=== PATIENT | male | born 1970 | race Caucasian/White ===

== ENCOUNTER 2017-08-05 17:51 | Inpatient (IN) | payer BC, SELFPAY ==
[2017-08-05] MEDS ORDERED: ASPIRIN 81 MG CHEWABLE TABLET ONE (18:29)
[2017-08-05] MEDS ORDERED: NITROGLYCERIN 0.4 MG/TAB SL ONE (18:29)
[2017-08-05] MEDS ORDERED: ONDANSETRON 4 MG/2 ML VIAL ONE (18:29)
[2017-08-05] MEDS ORDERED: NA CHLORIDE 0.9% 1,000 ML ONE (18:29)
[2017-08-05 18:48] LABS: Absolute Lymphocytes (CBC) 1.4 K/uL (0.7-4.9); Absolute Monocytes 0.5 K/uL (0.1-1.3); Absolute Neutrophil 5.2 K/uL (1.8-8.0); Basophils % 0.4 % (0-1.3); Eosinophils % 2.7 % (0-4.4); Hematocrit 49.2 % (39.6-49.0); Lymphocytes % 19.2 % (15.3-44.8); MCH 29.9 pg (27.0-35.0); MCV 88.6 fL (80-100); MPV 8.5 fL (7.6-11.3); Monocytes % 7.2 % (3.3-12.3); RBC Red Blood Cell Count 5.55 M/uL (4.33-5.43)
[2017-08-05 18:56] LABS: Protime INR 0.94
[2017-08-05 18:59] LABS: Bicarbonate 26 mEq/L (21-31); Glucose Level 149 mg/dL (65-120); Potassium 3.7 mEq/L (3.6-5.0); Sodium Level 137 mEq/L (135-145)
[2017-08-05 19:05] LABS: ALT/SGPT 29 IU/L (10-60); AST/SGOT 31 IU/L (10-42); Albumin 4.1 g/dL (3.2-5.5); Alkaline Phosphatase 60 IU/L (42-121); BUN Blood Urea Nitrogen 12 mg/dL (6-20); Bilirubin Direct < 0.1 mg/dL (0-0.2); Bilirubin Total 0.6 mg/dL (0.3-1.2); Creatine Phosphokinase 84 IU/L (22-269); Glomerular Filtration Rate 63 mL/min (=/>90); Magnesium 2.2 mg/dL (1.8-2.5); Protein, Total 7.4 g/dL (6.0-8.3)
[2017-08-05 19:08] LABS: CKMB Creatine Kinase MB 2.1 ng/ml (0.3-4.0)
[2017-08-05] MEDS ORDERED: MORPHINE 4 MG/ML SYR ONE (19:13)
--- NOTE | 2017-08-05 19:38 | RAD REPORT ---
EXAM DESCRIPTION: CT - Chest Angio - 08/05/2017 7:28 pm CLINICAL HISTORY: Chest pain, possible dissection COMPARISON: PE study 2010, chest film August 05, 2017 TECHNIQUE: Dynamically enhanced 3 mm thick images of the chest, abdomen, and upper pelvis were obtai ben during administration of approximately 150mL Isovue 370 IV contrast. Sagittal and coronal reconst ruction images were generated and reviewed. Exam utilizes a protocol to evaluate entire course of the aorta. All CT scans are performed using dose optimization technique as appropriate and may include automated exposure control or mA/KV adjustment according to patient size. FINDINGS: Aorta is normal in diameter with no dissection or other acute aortic findings. Reconstruct ion images show no significant findings. Pulmonary arteries are normal as well. No cardiomegaly, pericardial thickening or pericardial effusio n. No mass or infiltrate in the lung parenchyma. No pleural thickening, pleural effusion or pneumothorax . No abnormal mediastinal or hilar mass or lymphadenopathy seen. No chest wall mass or abnormal axillar y lymphadenopathy. Limited upper abdomen imaging shows multi stone cholelithiasis. Gallbladder is contracted. Acute gall bladder process is unlikely. No biliary tree dilatation. Partially imaged liver shows questionable fa tty infiltration. No focal lesions seen. IMPRESSION: Negative CT scan of the thoracic aorta. No suspicious or significant mediastinal, hilar or lung parenchymal process. No other significant findings on chest, abdomen and upper pelvis examination.
--- NOTE | 2017-08-05 20:15 | RAD REPORT ---
EXAM DESCRIPTION: RAD - Chest Single View - 08/05/2017 7:10 pm CLINICAL HISTORY: Chest pain, history of midline COMPARISON: February 2014 TECHNIQUE: AP portable chest image was obtained 1907 hours . FINDINGS: No peripheral mass or consolidation. Failure or volume overload not suspected tear heart s ize is prominent without vascular engorgement. This is a stable presentation. No measurable pleural e ffusion and no pneumothorax. No gross bony abnormality seen. No acute aortic findings suspected. IMPRESSION: No acute cardiopulmonary process. Cardiomegaly is present, similar to prior imaging, without acute failure or volume overload.
[2017-08-05] MEDS ORDERED: CLOPIDOGREL 75 MG TABLET ONE (20:19)
[2017-08-05] MEDS ORDERED: METOPROLOL TAR 25 MG TAB ONE (20:19)
--- NOTE | 2017-08-05 20:20 | EDPHYS ---
Physician Documentation [facility] Name: Luc Camacho Age: 47 yrs Sex: Male : 1970 Arrival Date: 08/05/2017 Time: 17:53 Bed 7 Private MD: ED Physician Ab Nichols HPI: 08/05 18:15 This 47 yrs old Male presents to ER via Ambulatory with complaints of Chest cp Pain. 18:15 The patient or guardian reports chest pain that is located primarily in the anterior cp chest wall. 18:15 Onset: 20 minute(s) ago. The pain radiates to back. Associated signs and symptoms: cp Pertinent positives: nausea, vomiting, Pertinent negatives: abdominal pain, cough, diaphoresis, headache, recent travel, syncope. The chest pain is described as sharp. Duration: The patient or guardian reports a single episode, that is still ongoing, and unchanged. Historical: - Allergies: 18:05 No Known Allergies; hj - PMHx: 18:05 Myocardial infarction; hj - PSHx: 18:05 heart stents; Appendectomy; hj - Immunization history:: Adult Immunizations up to date. - Social history:: Smoking status: Patient/guardian denies using tobacco. ROS: 18:20 Constitutional: Negative for body aches, chills, fever, poor PO intake. cp 18:20 Eyes: Negative for injury, pain, redness, and discharge, ENT: Negative for injury, cp pain, and discharge, Neck: Negative for injury, pain, and swelling. 18:20 Cardiovascular: Positive for chest pain, Negative for edema, palpitations. 18:20 Respiratory: Negative for cough, shortness of breath, wheezing. 18:20 Abdomen/GI: Positive for nausea, vomiting, Negative for abdominal pain, diarrhea, constipation, black/tarry stool, rectal bleeding. 18:20 Back: Positive for radiated pain, Negative for injury or acute deformity, decreased range of motion. 18:20 : Negative for urinary symptoms. 18:20 MS/extremity: Negative for paresthesias, swelling. 18:20 Skin: Negative for cellulitis, rash. 18:20 Neuro: Negative for altered mental status, headache, syncope, near syncope, weakness. 18:20 All other systems are negative. Exam: 18:25 Constitutional: The patient appears in no acute distress, alert, awake, cp non-diaphoretic, non-toxic, well developed, well nourished, uncomfortable. 18:25 Head/Face: Normocephalic, atraumatic. Eyes: Pupils equal round and reactive to light, cp extra-ocular motions intact. Lids and lashes normal. Conjunctiva and sclera are non-icteric and not injected. Cornea within normal limits. Periorbital areas with no swelling, redness, or edema. ENT: Nares patent. No nasal discharge, no septal abnormalities noted. Tympanic membranes are normal and external auditory canals are clear. Oropharynx with no redness, swelling, or masses, exudates, or evidence of obstruction, uvula midline. Mucous membranes moist. Neck: Trachea midline, no thyromegaly or masses palpated, and no cervical lymphadenopathy. Supple, full range of motion without nuchal rigidity, or vertebral point tenderness. No Meningismus. Chest/axilla: Normal chest wall appearance and motion. Nontender with no deformity. No lesions are appreciated. 18:25 Cardiovascular: Rate: tachycardic, Rhythm: regular, Pulses: Pulses are 2+ in right radial artery and left radial artery. Edema: is not appreciated, JVD: is not appreciated. 18:25 Respiratory: the patient does not display signs of respiratory distress, Respirations: normal, no use of accessory muscles, no retractions, no splinting, no tachypnea, labored breathing, is not present, Breath sounds: are clear throughout, no decreased breath sounds, no stridor, no wheezing. 18:25 Abdomen/GI: Inspection: abdomen appears normal, Bowel sounds: active, all quadrants, Palpation: abdomen is soft and non-tender, in all quadrants, rebound tenderness, is not appreciated, voluntary guarding, is not appreciated, involuntary guarding, is not appreciated. 18:25 Back: ROM is normal. 18:25 Musculoskeletal/extremity: Exam is negative for calf tenderness, edema, injury, Sensation intact. 18:25 Skin: cellulitis, is not appreciated, no rash present. 18:25 Neuro: Orientation: to person, place \T\ time. Mentation: is normal, Cerebellar function: is grossly normal, Motor: moves all fours, strength is normal, Sensation: is normal. Vital Signs: 18:03 BP 157 / 112; Pulse 110; Resp 18; Temp 97.1(O); Pulse Ox 96% on R/A; Weight 111.13 kg; hj Height 5 ft. 8 in. (172.72 cm); Pain 7/10; 18:35 BP 138 / 95; Pulse 114; Resp 22; Pulse Ox 95% on R/A; aj 19:11 BP 133 / 79; Pulse 80; Resp 18; Temp 98.; Pulse Ox 96% on R/A; Pain 4/10; ak1 20:44 BP 145 / 72; Pulse 70; Resp 18; Pulse Ox 99% on R/A; ea 21:03 BP 131 / 81; Pulse 78; Resp 18; Pulse Ox 99% on R/A; Pain 0/10; ea 22:11 BP 128 / 78; Pulse 80; Resp 18; Temp 98.0(O); Pulse Ox 100% on R/A; Pain 0/10; ea 18:03 Body Mass Index 37.25 (111.13 kg, 172.72 cm) hj MDM: 18:10 Patient medically screened. 19:45 Data reviewed: vital signs, nurses notes, lab test result(s), EKG, radiologic studies, cp CT scan, plain films. 19:45 Test interpretation: by ED physician or midlevel provider: ECG, plain radiologic cp studies. 19:45 The patient was given aspirin in the Emergency Department. cp 19:45 Response to treatment: the patient's symptoms have markedly improved after treatment. Physician consultation: Dipti Ramos MD was called at 19:45, was contacted at 19:45, regarding admission, to the telemetry unit. patient's condition. 08/05 18:15 Order name: Basic Metabolic Panel; Complete Time: 19:16 cp 08/05 19:17 Interpretation: Normal except: GLUC 149; GFR 63. cp 08/05 18:15 Order name: BNP; Complete Time: 19:16 cp 08/05 18:15 Order name: CBC with Diff; Complete Time: 19:04 cp 08/05 19:04 Interpretation: Normal except: RBC 5.55; HCT 49.2. cp 08/05 18:15 Order name: Ckmb; Complete Time: 19:16 cp 08/05 18:15 Order name: CPK; Complete Time: 19:16 cp 08/05 18:15 Order name: LFT's; Complete Time: 19:16 cp 08/05 18:15 Order name: Magnesium; Complete Time: 19:16 cp 04/ 18:15 Order name: PT-INR; Complete Time: 19:04 cp / 18:15 Order name: Ptt, Activated; Complete Time: 19:04 cp 08/05 18:15 Order name: Troponin (emerg Dept Use Only); Complete Time: 19:16 cp / 19:17 Interpretation: Abnormal: TROPED 0.15. cp / 18:15 Order name: XRAY Chest (1 view); Complete Time: 20:27 cp 08/05 19:05 Order name: CT Chest Angio; Complete Time: 19:44 cp 08/05 18:15 Order name: EKG; Complete Time: 18:16 cp 08/05 18:15 Order name: Cardiac monitoring; Complete Time: 18:40 cp 08/05 18:15 Order name: EKG - Nurse/Tech; Complete Time: 18:41 cp 08/05 18:15 Order name: IV Saline Lock; Complete Time: 18:40 cp 08/05 18:15 Order name: Labs collected and sent; Complete Time: 18:40 cp 08/05 18:15 Order name: O2 Per Protocol; Complete Time: 18:40 cp / 18:15 Order name: O2 Sat Monitoring; Complete Time: 18:40 cp / 20:24 Order name: CONS Physician Consult EDMS Administered Medications: 18:39 Drug: Nitroglycerin 0.4 mg Route: Sublingual; aj 18:59 Follow up: Response: No adverse reaction aj 18:39 Drug: NS 0.9% 500 ml Route: IV; Rate: bolus; Site: right antecubital; aj 18:59 Follow up: Response: No adverse reaction; IV Status: Completed infusion; IV Intake: aj 500ml 18:39 Drug: Zofran 4 mg Route: IVP; Site: right antecubital; aj 18:59 Follow up: Response: Nausea is decreased aj 18:39 Drug: Aspirin Chewable Tablet 324 mg Route: PO; aj 18:59 Follow up: Response: No adverse reaction aj 18:58 Drug: NS 0.9% 1000 ml Route: IV; Rate: 100 ml/hr; Site: right antecubital; aj 20:38 Follow up: Response: No adverse reaction; IV Status: Completed infusion ea 20:28 Drug: Lovenox 1 mg/kg Route: Sub-Q; Site: right lower abdomen; ea 21:03 Follow up: Response: No adverse reaction ea 20:30 Drug: morphine 4 mg Route: IVP; Site: right antecubital; ea 21:02 Follow up: Response: No adverse reaction ea 21:02 Follow up: Response: Pain is decreased ea 20:37 Drug: Metoprolol 25 mg Route: PO; ea 21:03 Follow up: Response: No adverse reaction ea 20:38 Drug: PlaVIX 300 mg Route: PO; ea 21:03 Follow up: Response: No adverse reaction ea Disposition: 08/06 11:40 Co-signature as Attending Physician, Ab Nichols MD I agree with the assessment and nova plan of care. Disposition: 08/05/17 20:19 Hospitalization ordered by Dipti Ramos for Observation. Preliminary diagnosis is Chest pain, unspecified. - Bed requested for Telemetry/MedSurg (observation). - Status is Observation. ea - Condition is Stable. - Problem is new. - Symptoms have improved. UTI on Admission? No Signatures: Dispatcher [employer] Mckayla Lopes, RN Ab White MD MD cha Joaquin, Henry RN Ab Patton PA PA cp Garcia, Cindy, RN Jessica Patrick RN RN ea
--- NOTE | 2017-08-05 20:20 | ER ---
Nurse's Notes [facility] Name: Luc Camacho Age: 47 yrs Sex: Male : 1970 Arrival Date: 08/05/2017 Time: 17:53 Bed 7 Private MD: Diagnosis: Chest pain, unspecified Presentation: 08/05 18:03 Presenting complaint: Patient states: hx of CO with 2 stents; complaints of sharp pain hj that started 20 mins ago and is getting worse; reports nausea and vomiting;. Transition of care: patient was not received from another setting of care. Onset of symptoms was August 05, 2017. Care prior to arrival: None. 18:03 Method Of Arrival: Ambulatory hj 18:03 Acuity: NABIL 3 hj Triage Assessment: 18:05 General: Appears in no apparent distress. uncomfortable, Behavior is cooperative, hj appropriate for age, anxious. Pain: Complains of pain in chest Pain radiates to back. Cardiovascular: Capillary refill < 3 seconds Patient's skin is warm and dry. Historical: - Allergies: 18:05 No Known Allergies; hj - PMHx: 18:05 Myocardial infarction; hj - PSHx: 18:05 heart stents; Appendectomy; hj - Immunization history:: Adult Immunizations up to date. - Social history:: Smoking status: Patient/guardian denies using tobacco. Screenin:35 Abuse screen: Denies threats or abuse. Denies injuries from another. Nutritional aj screening: No deficits noted. Tuberculosis screening: No symptoms or risk factors identified. Fall Risk None identified. Assessment: 18:06 Pain: Pain began 1 hour ago. hj 18:35 General: Appears in no apparent distress. comfortable, Behavior is calm, cooperative, aj appropriate for age. Pain: Complains of pain in chest Aggravated by repositioning. Neuro: Level of Consciousness is awake, alert, obeys commands, Oriented to person, place, time, situation. Cardiovascular: Reports chest pain, nausea, vomiting, Capillary refill < 3 seconds in bilateral fingers Patient's skin is warm and dry. Rhythm is sinus tachycardia. Respiratory: Airway is patent Respiratory effort is even, unlabored, Respiratory pattern is regular, symmetrical. GI: Reports nausea, vomiting. Derm: Skin is intact, is healthy with good turgor, Skin is pink, warm \T\ dry. normal. 19:55 General: Appears in no apparent distress. comfortable, Behavior is calm, cooperative, ea appropriate for age. Pain: Complains of pain in chest Pain radiates to back Pain currently is 3 out of 10 on a pain scale. Pain began 1 hour ago. Neuro: Level of Consciousness is awake, alert, obeys commands, Oriented to person, place, time, situation. Cardiovascular: Capillary refill < 3 seconds Patient's skin is warm and dry. Respiratory: Airway is patent Respiratory effort is even, unlabored, Respiratory pattern is regular, symmetrical. GI: Abdomen is non-distended. Derm: Skin is pink, warm \T\ dry. normal. 20:30 Reassessment: Patient and/or family updated on plan of care and expected duration. Pain ea level reassessed. Patient is alert, oriented x 3, equal unlabored respirations, skin warm/dry/pink. 21:45 Reassessment: Patient and/or family updated on plan of care and expected duration. Pain ea level reassessed. Patient is alert, oriented x 3, equal unlabored respirations, skin warm/dry/pink. 22:10 Reassessment: Patient and/or family updated on plan of care and expected duration. Pain ea level reassessed. Patient is alert, oriented x 3, equal unlabored respirations, skin warm/dry/pink. Report called to receiving nurse. Vital Signs: 18:03 BP 157 / 112; Pulse 110; Resp 18; Temp 97.1(O); Pulse Ox 96% on R/A; Weight 111.13 kg; hj Height 5 ft. 8 in. (172.72 cm); Pain 7/10; 18:35 BP 138 / 95; Pulse 114; Resp 22; Pulse Ox 95% on R/A; aj 19:11 BP 133 / 79; Pulse 80; Resp 18; Temp 98.; Pulse Ox 96% on R/A; Pain 4/10; ak1 20:44 BP 145 / 72; Pulse 70; Resp 18; Pulse Ox 99% on R/A; ea 21:03 BP 131 / 81; Pulse 78; Resp 18; Pulse Ox 99% on R/A; Pain 0/10; ea 22:11 BP 128 / 78; Pulse 80; Resp 18; Temp 98.0(O); Pulse Ox 100% on R/A; Pain 0/10; ea 18:03 Body Mass Index 37.25 (111.13 kg, 172.72 cm) ED Course: 17:53 Patient arrived in ED. mr 18:05 Triage completed. hj 18:06 Arm band placed on left wrist. hj 18:06 Patient maintains SpO2 saturation greater than 95% on room air. hj 18:10 Ab Sutton PA is PHCP. cp 18:10 Ab Nichols MD is Attending Physician. cp 18:27 Mckayla Robles, RN is Primary Nurse. aj 18:35 Patient has correct armband on for positive identification. Placed in gown. Bed in low aj position. Call light in reach. Side rails up X 1. Adult w/ patient. 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 Pulse ox on. NIBP on. 18:35 Inserted saline lock: 18 gauge in right antecubital area, using aseptic technique. aj Blood collected. By Simone Meyer. 19:06 X-ray completed. Portable x-ray completed in exam room. Patient tolerated procedure kc2 well. 19:08 Tessy Mendieta, RN is Primary Nurse. 19:08 XRAY Chest (1 view) In Process Unspecified. EDMS 19:11 No provider procedures requiring assistance completed. ak1 19:23 Primary Nurse role handed off by Tessy Mendieta, RN rg2 19:28 CT Chest Angio In Process Unspecified. EDMS 20:13 Jessica Dutton, KARLIE is Primary Nurse. ea 20:19 Dipti Ramos MD is Hospitalizing Provider. cp 20:42 Patient admitted, IV remains in place. ea Administered Medications: 18:39 Drug: Nitroglycerin 0.4 mg Route: Sublingual; aj 18:59 Follow up: Response: No adverse reaction aj 18:39 Drug: NS 0.9% 500 ml Route: IV; Rate: bolus; Site: right antecubital; aj 18:59 Follow up: Response: No adverse reaction; IV Status: Completed infusion; IV Intake: aj 500ml 18:39 Drug: Zofran 4 mg Route: IVP; Site: right antecubital; aj 18:59 Follow up: Response: Nausea is decreased aj 18:39 Drug: Aspirin Chewable Tablet 324 mg Route: PO; aj 18:59 Follow up: Response: No adverse reaction aj 18:58 Drug: NS 0.9% 1000 ml Route: IV; Rate: 100 ml/hr; Site: right antecubital; aj 20:38 Follow up: Response: No adverse reaction; IV Status: Completed infusion ea 20:28 Drug: Lovenox 1 mg/kg Route: Sub-Q; Site: right lower abdomen; ea 21:03 Follow up: Response: No adverse reaction ea 20:30 Drug: morphine 4 mg Route: IVP; Site: right antecubital; ea 21:02 Follow up: Response: No adverse reaction ea 21: Follow up: Response: Pain is decreased ea 20:37 Drug: Metoprolol 25 mg Route: PO; ea 21:03 Follow up: Response: No adverse reaction ea 20:38 Drug: PlaVIX 300 mg Route: PO; ea 21:03 Follow up: Response: No adverse reaction ea Intake: 18:59 IV: 500ml; Total: 500ml. aj Outcome: 20:19 Decision to Hospitalize by Provider. chastity 20:42 Instructed on the need for admit. ea 22:10 Admitted to Med/surg accompanied by tech, via wheelchair, room 431, Report called to ea Receiving nurse. 22:10 Condition: stable 22:12 Patient left the ED. ea Signatures: Dispatcher [employer] EDMS Eli Rodriguez2 Tessy Mendieta, RN Mckayla Serrano ch RN Twila White mr Alyssa Arechiga RN RN ak1 Cr Noonan, RN Ab Patton PA PA cp Carr, Kelsie kc2 Jessica Dutton RN RN ea
[2017-08-05] MEDS ORDERED: ENOXAPARIN 100 MG/ML SYR SQ ONE (20:23)
[2017-08-05] MEDS ORDERED: ACETAMINOPHEN 500 MG TAB PO PRN (21:13)
[2017-08-05] MEDS ORDERED: MORPHINE 4 MG/ML SYR IV PRN (21:13)
[2017-08-05 23:58] VITALS: BMI 37.2
[2017-08-06] MEDS ORDERED: Enoxaparin 120 MG/0.8 ML SYR SQ SCH (09:00)
[2017-08-06] MEDS ORDERED: ENOXAPARIN 40 MG/0.4 ML SQ SCH (09:00)
[2017-08-06] MEDS ORDERED: METOPROLOL TAR 50 MG TAB PO SCH (09:00)
[2017-08-06] MEDS ORDERED: ASPIRIN EC 81 MG TAB PO SCH (09:00)
--- NOTE | 2017-08-06 09:03 | P.HP ---
Certification for Inpatient Patient admitted to: Inpatient With expected LOS: >2 Midnights Patient will require the following post-hospital care: None Practitioner: I am a practitioner with admitting privileges, knowledge of patient current condition, hospital course, and medical plan of care. Services: Services provided to patient in accordance with Admission requirements found in Title 42 Section 412.3 of the Code of Federal Regulations Patient History Date of Service: 08/05/17 Reason for admission: Chest pain rule out History of Present Illness: Patient is a 47-year-old gentleman who came into the hospital with chest discomfort. Pain was mainly in the sternal region and radiated to his back. He has admitted to taking much of his medications because he is not able to afford it. He has had 2 episodes were he has been admitted in the past and he has required 3 stents in his LAD. The 1st 2 were placed in 2005 & the next 1 in 2011. Patient is not taking any medications except for a baby aspirin. He does have a lot of stressors in his life. Patient will be admitted to the hospital for further evaluation. Will continue to monitor serial troponins and EKG. Will make patient NPO after midnight for possible intervention in a.m.. Allergies No Known Allergies Allergy (Verified 03/06/14 16:50) Home Medications: Aspirin Chewable [Aspirin Chewable*] 81 mg PO DAILY 08/05/17 - Past Medical/Surgical History Has patient received pneumonia vaccine in the past: No Diabetic: No -: Cardiac stents x2 2007-mid and distal LAD -: Stent in 2012-LAD -: Knee sx x2 to left knee and x1 to right knee -: appendectomy -: Cardiac catheterization - Family History Father Medical History: Heart disease Mother Medical History: Heart disease - Social History Smoking Status: Never smoker Alcohol use: Yes CD- Drugs: No Caffeine use: Yes Place of Residence: Home Review of Systems 10-point ROS is otherwise unremarkable Physical Examination - Vital Signs Temperature: 99.1 F Blood Pressure: 114/64 Pulse: 77 Respirations: 15 Pulse Ox (%): 95 - Physical Exam General: Alert, In no apparent distress, Oriented x3 HEENT: Atraumatic, PERRLA, Mucous membr. moist/pink, EOMI, Sclerae nonicteric Neck: Supple, 2+ carotid pulse no bruit, No LAD, Without JVD or thyroid abnormality Respiratory: Clear to auscultation bilaterally, Normal air movement Cardiovascular: Regular rate/rhythm, Normal S1 S2, No murmurs Gastrointestinal: Normal bowel sounds, Soft and benign, Non-distended, No tenderness Musculoskeletal: No clubbing, No swelling, No tenderness Integumentary: No rashes Neurological: Normal gait, Normal speech, Normal strength at 5/5 x4 extr, Normal tone, Sensation intact, Cranial nerves 3-12 intact, Normal affect Lymphatics: No axilla or inguinal lymphadenopathy - Studies Laboratory Data (last 24 hrs) 08/06/17 04:26: Triglycerides 304 H, Cholesterol 149, HDL Cholesterol 26 L, Cholesterol/HDL Ratio 5.73 08/06/17 04:26: Troponin I 0.65 H* 08/05/17 22:32: Troponin I 0.40 H* 08/05/17 18:35: PT 11.1, INR 0.94, APTT 30.6 08/05/17 18:35: WBC 7.4, Hgb 16.6, Hct 49.2 H, Plt Count 210 08/05/17 18:35: B-Natriuretic Peptide 53 08/05/17 18:35: Sodium 137, Potassium 3.7, BUN 12, Creatinine 1.22, Glucose 149 H, Magnesium 2.2, Total Bilirubin 0.6, AST 31, ALT 29, Alkaline Phosphatase 60 Assessment & Plan - Problems (Diagnosis) (1) Chest pain, rule out acute myocardial infarction Current Visit: Yes Status: Acute (2) Unstable angina Current Visit: Yes Status: Acute (3) Noncompliance Current Visit: Yes Status: Acute (4) Hypertension Current Visit: Yes Status: Acute - Plan 1. Serial troponins and EKG 2. Cardiology consultation 3. Echocardiogram and possible cardiac catheterization the morning 4. Anti-platelet therapy, anti coagulation, beta-kalyan, statin, and O2 as needed 5. IV morphine for pain 6. NPO after midnight 7. GI and DVT prophylaxis Discharge Plan: Home Plan to discharge in: Greater than 2 days - Advance Directives Does patient have a Living Will: No Does patient have a Durable POA for Healthcare: No - Code Status/Comfort Care Code Status Assessed: Yes Code Status: Full Code Critical Care: No Time Spent Managing PTS Care (In Minutes): 50
[2017-08-06] MEDS ORDERED: HEPA 1000U/500MLS 1,000 UNIT/500 ML BAG IV ONE (09:54)
[2017-08-06] MEDS ORDERED: LIDOCAINE 1% 20 ML MDV ONE (09:54)
[2017-08-06] MEDS ORDERED: ATROPINE SULF 1 MG/10 ML SYR IV ONE (10:12)
[2017-08-06] MEDS ORDERED: MIDAZOLAM HCL 2 MG/2 ML INJ ONE ×3 (10:12→10:41)
[2017-08-06] MEDS ORDERED: NA CHLORIDE 0.9% 0 ML ONE (10:12)
[2017-08-06] MEDS ORDERED: NA CHLORIDE 0.9% 500 ML ONE (10:12)
--- NOTE | 2017-08-06 10:20 | EKG ---
Test Date: 2017-08-05 Test Time: 18:21:01 Burning Supervisor: IVAN MEASUREMENT RESULTS: Intervals: Rate: 91 LA: 140 QRSD: 90 QT: 340 QTc: 418 Sinclair: P: 47 LA: 140 QRS: -3 T: 66 INTERPRETIVE STATEMENTS: Normal sinus rhythm Inferior infarct, age undetermined Abnormal ECG Compared to ECG 03/06/2014 04:11:12 Myocardial infarct finding now present Sinus tachycardia no longer present Electronically Signed On 08-06-17 10:19:10 CDT by Héctor Fu
[2017-08-06] MEDS ORDERED: METOPROLOL TARTRATE 5 MG/5 ML INJ IV ONE (10:43)
[2017-08-06] MEDS ORDERED: LIDOCAINE 1% W/EPI 1:100,000 MDV 50 ML VIAL ONE (11:10)
[2017-08-06 11:18] VITALS: O2SAT 97
[2017-08-06] MEDS: ATORVASTATIN 20 MG TAB PO SCH ×2 (13:52)
--- NOTE | 2017-08-06 13:56 | P.SSS ---
Patient History Date of Service: 08/06/17 Primary Care Provider: None Reason for admission: Chest pain rule out Allergies No Known Allergies Allergy (Verified 03/06/14 16:50) Home Medications: Aspirin Chewable [Aspirin Chewable*] 81 mg PO DAILY 08/05/17 - Past Medical/Surgical History Has patient received pneumonia vaccine in the past: No Diabetic: No -: Cardiac stents x2 2007-mid and distal LAD -: Stent in 2012-LAD -: Knee sx x2 to left knee and x1 to right knee -: appendectomy -: Cardiac catheterization - Family History Father -: Heart disease Mother -: Heart disease - Social History Smoking Status: Never smoker Alcohol use: Yes CD- Drugs: No Caffeine use: Yes Place of Residence: Home Review of Systems 10-point ROS is otherwise unremarkable Physical Examination - Vital Signs Temperature: 97 F Blood Pressure: 142/96 Pulse: 73 Respirations: 16 Pulse Ox (%): 95 - Physical Exam General: Alert, In no apparent distress, Oriented x3 HEENT: Atraumatic, PERRLA, Mucous membr. moist/pink, EOMI, Sclerae nonicteric Neck: Supple, 2+ carotid pulse no bruit, No LAD, Without JVD or thyroid abnormality Respiratory: Clear to auscultation bilaterally, Normal air movement Cardiovascular: Regular rate/rhythm, Normal S1 S2 Gastrointestinal: Normal bowel sounds, No tenderness Musculoskeletal: No tenderness Integumentary: No rashes Neurological: Normal gait, Normal speech, Normal strength at 5/5 x4 extr, Normal tone, Normal affect Lymphatics: No axilla or inguinal lymphadenopathy - Studies Laboratory Data (last 24 hrs) 08/06/17 04:26: Triglycerides 304 H, Cholesterol 149, HDL Cholesterol 26 L, Cholesterol/HDL Ratio 5.73 08/06/17 04:26: Troponin I 0.65 H* 08/05/17 22:32: Troponin I 0.40 H* 08/05/17 18:35: PT 11.1, INR 0.94, APTT 30.6 08/05/17 18:35: WBC 7.4, Hgb 16.6, Hct 49.2 H, Plt Count 210 08/05/17 18:35: B-Natriuretic Peptide 53 08/05/17 18:35: Sodium 137, Potassium 3.7, BUN 12, Creatinine 1.22, Glucose 149 H, Magnesium 2.2, Total Bilirubin 0.6, AST 31, ALT 29, Alkaline Phosphatase 60 - Diagnosis (Problem(s)) (1) NSTEMI (non-ST elevated myocardial infarction) Current Visit: Yes Status: Acute Plan: NSTEMI with elevated troponin -Cardiac cath today with 100% LAD block and 70% OM block -Awaiting Transfer to [facility] -Cont with ASA, Lipitor and BB (2) Hypertension Current Visit: Yes Status: Acute Qualifiers: Hypertension type: essential hypertension Qualified Code(s): I10 - Essential (primary) hypertension (3) Noncompliance Current Visit: Yes Status: Chronic - Disposition Disposition: TRANSFER TO [facility] Diet: Regular Activity: Ad tita Critical Care: No
[2017-08-06 15:50] VITALS: BP 119/64; TEMP 100
--- NOTE | 2017-08-07 02:57 | OP ---
Date of Procedure: 08/06/2017 Surgeon: Héctor Fu MD The patient was admitted on 08/05/2017. I saw him on 08/06/2017. He has non-ST elevation myocardial infarction. Heart catheterization was suggested. The patient und erstands the risks and the benefits and agreed. Procedure In Detail: The patient was brought to the cardiac cath lab manager on 08/06/2017. Soon after I saw him, h e was prepped and draped in the routine sterile fashion. He was given 4 mg of Versed for IV sedation . A 6-Ukrainian sheath was introduced in the right common femoral artery. StarClose was used to close the case. Angiography there was normal. Six-Ukrainian catheters, left Remy and right Remy were u sed to cannulate the left main and the right main. The patient had a subtotal LAD before the stent t hat he had in 2007 with ROBER 1 flow, ST elevation just from the injection and some slight chest pain. The circumflex distally showed about 70% long stenosis. Has a small ramus with a 90% ostial stenos is. The RCA was normal with some collateral to the LAD. LV-gram was done. Normal ejection fraction . Left ventricular end-diastolic pressure was 22 mmHg. He had a normal blood pressure. Estimated Blood Loss: 5 cc. Complications: No complications. Operators: Ruba Rich. Total conscious sedation was 30 minutes. The plan was to transfer the patient to [facility] for bypass surgery to include a PAGAN to the LAD and a vein graft to the OM. The case was discussed with him and his family and everybody was aware of his conditions. I will discuss the case further with Dr. Duane marie as well. JOSUE/MICHAEL Voice ID: [id number] Report ID: [id number]
--- NOTE | 2017-08-07 03:06 | CON ---
Date of Consultation: 08/06/[address] Maldonado's service on 08/05/2017. I saw the patient on 08/06/2017. Reason For Consultation: Acute coronary syndrome. History Of Present Illness: Mr. Camacho is a 47-year-old white male. He is obviously noncompliant. We put a LAD stent in him in 2007, really failed to come for followup; and then in 2011, c mark into the office and had a stress Cardiolite for cardiac clearance for knee surgery. We had not s een him since, but came in with substernal chest pain with exertion, radiating to the back with some nausea, vomiting, diaphoresis. EKG showed nonspecific changes, but he had a troponin of 0.65. He wa s noted to have triglyceride of 304, HDL of 26. His chest x-ray was negative. CT angiogram of the c hest was negative. Kidney function was normal. He is now pain free. Past Medical History: Positive for history of CAD and PCI. He has had an appendectomy and knee surg bob in the past. Allergies: NONE. Review of Systems: Negative. Social History: Negative. Family History: Positive for heart disease. Home Medications: Include aspirin. Physical Examination: Vital Signs: He weighed 244 pounds. Vital signs are stable. Afebrile. HEENT: Negative. Chest: Clear. Cardiac: Exam revealed a regular rhythm and rate without any murmurs, gallops, or rubs. Neck: Supple without any bruit, lymphadenopathy, JVD, or thyromegaly. Extremities: Revealed no clubbing, cyanosis, or edema. Diagnostic Data: As stated earlier. Impression And Plan: 1.Non-ST elevation myocardial infarction. 2.Dyslipidemia. 3.History of coronary artery disease, status post LAD stent in 2007. 4.Noncompliance. Heart catheterization would be performed today. The risks and the benefits of the procedure were dis cussed with Mr. Camacho and he agreed to proceed. We will continue his present regimen right now. He is on aspirin, Lovenox, beta blockers, and should be for sure on a statin and maybe fenofibrate down the road. NB/MODL Voice ID: [id number] Report ID: [id number]
== END 2017-08-06 18:54 | disposition short-term general hospital (02) | DRG 282 ==
LOC: ER 17:51 → ERHOLD 20:30 → 4TH 21:29 → OBSVTOIN 08-06 08:36
PROVIDERS: ADMIT Hospitalist; ATTEND Hospitalist
PROC: 4A023N7 Measurement of Cardiac Sampling and Pressure, Left Heart, Percutaneous Approach (ICD-10-PCS; principal; 2017-08-06)
PROC: B205YZZ Plain Radiography of Left Heart using Other Contrast (ICD-10-PCS; 2017-08-06)
PROC: B201YZZ Plain Radiography of Multiple Coronary Arteries using Other Contrast (ICD-10-PCS; 2017-08-06)
DX: I21.4 Non-ST elevation (NSTEMI) myocardial infarction (principal); I25.10 Atherosclerotic heart disease of native coronary artery without angina pectoris; I10 Essential (primary) hypertension; Z95.5 Presence of coronary angioplasty implant and graft; Z91.14 Patient's other noncompliance with medication regimen; E78.5 Hyperlipidemia, unspecified
CPT/HCPCS: 36415; 71045; 71275; 80048; 80061; 80076; 82550; 82553; 83735; 83880; 84484; 85025; 85610; 85730; 93005; 93458; 96361; 96372; 96374; 96375; 99285; C1893; G0378; J0583; J1650; J2250; J2405; J7030; Q9967